=== PATIENT | male | born 2000 | race African-American/Black ===

== ENCOUNTER 2019-06-09 14:44 | Emergency (ER) | payer SELFPAY ==
[~2019-06-09] VITALS: Ht 180 cm; Wt 74.8 kg
--- OUTSIDE RECORDS SUMMARY | 2019-06-09 14:50 | XMS REPORT | Continuity of Care Document ---
Author Organization Unknown Address Unknown Phone Unavailable Allergies There is no data. Medications There is no data. Problems There is no data. Procedures There is no data. Results Test Result Range HSV 1/2 ANTIBODY IgM - 09/15/18 12:25 HSV 1 IGM SCREEN NEGATIVE NRG HSV 2 IGM SCREEN NEGATIVE NRG Encounters ACCT No. Visit Date/Time Discharge Status Pt. Type Provider Facility Loc./Unit Complaint [id number] 07/07/2017 09:39:10 07/07/2017 23:59: 59 CLS Outpatient Santiago Lino [id number] 03/01/2013 10:05:27 03/01/2013 23:59: 59 CLS Outpatient Yoselin Lai [id number] 07/11/2018 18:05:10 Document Registration [id number] 09/15/2018 11:40:00 09/15/2018 23:59: 59 CLS Out[id number] 09/15/2018 11:40:00 Document Registration
--- OUTSIDE RECORDS SUMMARY | 2019-06-09 14:50 | XMS REPORT ---
Author Author Venkata Lino [facility] Address [address] [place], [place] [id number] Care Team Providers Care Leasing Associate Name Role Phone Santiago Lino PCP Santiago Lino PreferredProvider Allergies and Adverse Reactions Name Reaction Notes NO KNOWN DRUG ALLERGIES Plan of Treatment Not available. Medications Name Start Date Expiration Date SIG Comments hydroxyzine HCl 25 mg oral tablet 05/31/2011 06/01/2011 take 1 tablet by oral route QID PRN loratadine 10 mg oral tablet 06/14/2011 09/12/2011 pipo e 1 tablet (10 mg) by oral route once daily for 30 days azithromycin 250 mg oral tablet 12/07/2012 12/12/2012 take 2 tablets (500 mg) by oral route once daily for 1 day then 1 tablet (250 mg) by oral route once daily for 4 days Discontinued Name Start Date Discontinued Date SIG Comments Nasonex 50 mcg/actuation nasal spray,non-aerosol 03/01/2013 07/07/2017 spray 2 sprays in each nostril by intranasal route once daily Cheratussin AC 10-100 mg/5 mL oral liquid 03/01/2013 018 take 5-10 milliliters by oral route every 4 hours as needed for cough Problem List Not available. Vital Signs Date Time BP-Sys(mm[Hg] BP-Hilda(mm[Hg]) HR(bpm) RR(rpm) Temp WT HT HC BMI BSA BMI Percentile O2 Sat(%) 07/07/2017 8:43:00 AM 113 mmHg 72 mmHg 65 bpm 20 rpm 98.2 F 146.437 lbs 70 in 21.0114 kg/m 1.8112 m 26.2 % 98 % 03/01/2013 9:09:00 AM 86 bpm 16 rpm 99.2 F 131.4 lbs 12/07/2012 8:58:00 AM 82 bpm 20 rpm 96 F 128 lbs 05/30/2012 8:46:00 AM 91 bpm 16 rpm 97.9 F 119.4 lbs 99 % 10/27/2011 8:50:00 AM 110 mmHg 66 mmHg 85 bpm 20 rpm 98.2 F 109.2 lbs 100 % 09/15/2011 1:31:00 PM 108 mmHg 72 mmHg 100 bpm 24 rpm 98.5 F 106.5 lbs 63 in 18.8654 kg/m 1.4654 m 49.7 % 05/31/2011 2:41:00 PM 90 bpm 20 rpm 97.7 F 102.6 lbs 99 % 05/19/2011 4:01:00 PM 92 mmHg 68 mmHg 85 bpm 20 rpm 98.5 F 102.4 lbs 62 in 18.729 kg/m 1.4254 m 51 % 100 % 01/04/2011 4:09:00 PM 106 mmHg 70 mmHg 86 bpm 20 rpm 98.9 F 94.6 lbs 60.5 in 18.17 kg/m2 1.35 m2 46 % 99 % Social History Name Description Comments Lives with other family members custodia l maternal aunt and uncle No smoke exposure No pets at home Student (middle school) 7th grade at [employer] () Dad involved in child's care lives in [facility] Mom involved in child's care. lives in [facility] siblings not in the home lots of brother s and sisters that live elsewhere Tobacco Never smoker History of Procedures Date Ordered Description Order Status 09/15/2011 12:00 AM IMMUNIZATION ADMIN EACH ADD Reviewed 09/15/2011 12:00 AM IMMUNIZATION ADMIN Reviewed 09/15/2011 12:00 AM VFC Varivax (Chicken Pox Vac) Reviewed 09/15/2011 12:00 AM VFC Adacel Reviewed 07/07/2017 9:28 AM URINALYSIS AUTO W/O SCOPE Reviewed 05/30/2012 12:00 AM URINALYSIS NONAUTO W/SCOPE Reviewed 12/07/2012 12:00 AM IMMUNIZATION ADMIN Reviewed 12/07/2012 12:00 AM VFC Gardasil (HPV Vaccine) Reviewed 12/07/2012 12:00 AM Flu Mist, VFC Reviewed 12/07/2012 12:00 AM IMMUNE ADMIN ORAL/NASAL Reviewed 03/01/2013 12:00 AM INFLUENZA A/B AG EIA Reviewed Results Summary Date and Description Results 05/30/2012 10:28 AM COLOR YELLOW APPEARANCE CLOVER R SPEC GRAV >=1.030 pH 6.0 PROTEIN NEGATIVE GLUCOSE NEGATIVE KETONE NEGATIVE BILIRUBIN NEGATIVE BLOOD NEGATIVE NITRITE NEGATIVE LEUK SCREEN NEGATIVE WBC/HPF RARE RBC/HPF 0-5 CASTS/LPF NEGATIVE CRYSTALS NEGATIVE MUCOUS THRDS FEW BACTERIA FEW EPITH CELLS FEW SQUAMOUS TRICHOMONAS NEGATIVE YEAST NEGATIVE CULT SET UP? NO 03/01/2013 9:41 AM INFLUENZA A & B NO INFLUENZA A OR B DETECTED 07/07/2017 9:28 AM Clarity Ur clear Urine-Color yellow Glucose Ur-sCnc negative Bilirub Ur Ql negative Ketones Ur Ql Strip negative Sp Gr Ur Qn >=1.030 Hgb Ur Ql Strip negative pH Ur-LsCnc 6.0 Prot Ur Ql Strip 30 Urobilinogen Ur-mCnc 0.2 Nitrite Ur Ql Strip negative WBC # Ur negative History Of Immunizations Name Date Admin Mfg Name Mfg Code Trade Name Lot# Route Inj Vis Given Vis Pub CVX HepB 1998 Not Entered NE Not Entered Not Entered Not E ntered 02/07/2017 02/07/2017 08 HepB 1998 Not Entered NE Not Entered Not Entered Not En tered 02/07/2017 02/07/2017 08 HepB 1998 Not Entered NE Not Entered Not Entered Not En tered 02/07/2017 02/07/2017 08 DTaP 1998 Not Entered NE Not Entered Not Entered Not En tered 02/07/2017 02/07/2017 20 DTaP 1998 Not Entered NE Not Entered Not Entered Not En tered 02/07/2017 02/07/2017 20 DTaP 02/21/2001 Not Entered NE Not Entered Not Entered Not En tered 02/07/2017 02/07/2017 20 DTaP 03/08/2002 Not Entered NE Not Entered Not Entered Not En tered 02/07/2017 02/07/2017 20 HepA 01/10/2006 Not Entered NE Not Entered Not Entered Not En tered 02/07/2017 02/07/2017 83 HepA 09/26/2009 Not Entered NE Not Entered Not Entered Not En tered 02/07/2017 02/07/2017 83 Meningococcal 09/26/2009 Not Entered NE Not Entered Not Ente red Not Entered 02/07/2017 02/07/2017 136 MMR 02/21/2001 Not Entered NE Not Entered Not Entered Not En tered 02/07/2017 02/07/2017 03 MMR 03/08/2002 Not Entered NE Not Entered Not Entered Not En tered 02/07/2017 02/07/2017 03 IPV 1998 Not Entered NE Not Entered Not Entered Not En tered 1998 02/07/2017 999 IPV 1998 Not Entered NE Not Entered Not Entered Not En tered 02/07/2017 02/07/2017 110 IPV 02/21/2001 Not Entered NE Not Entered Not Entered Not En tered 02/07/2017 02/07/2017 110 IPV 03/08/2002 Not Entered NE Not Entered Not Entered Not En tered 02/07/2017 02/07/2017 110 Varicella 01/07/2003 Not Entered NE Not Entered Not Entered Not Entered 02/07/2017 02/07/2017 21 Hib 1998 Not Entered NE Not Entered Not Entered Not En tered 02/07/2017 02/07/2017 999 Hib 1998 Not Entered NE Not Entered Not Entered Not En tered 02/07/2017 02/07/2017 999 Hib 02/21/2001 Not Entered NE Not Entered Not Entered Not En tered 02/07/2017 02/07/2017 999 Rotavirus 1998 Not Entered NE Not Entered Not Entered Not Entered 02/07/2017 02/07/2017 116 Rotavirus 1998 Not Entered NE Not Entered Not Entered Not Entered 02/07/2017 02/07/2017 116 Varicella 09/15/2011 [employer] MSD VARIVAX [id number] Subcutaneou s Right Vastus Lateralis 09/15/2011 04/20/2007 21 Tdap 09/15/2011 [employer] BOOSTRIX [id number] Intramuscul ar Right Deltoid 09/15/2011 06/23/2006 115 HPV 12/07/2012 [employer] MSD GARDASIL [id number] Intramuscu lar Left Deltoid 12/07/2012 06/23/2012 62 Influenza 1998 Not Entered NE Not Entered Not Entered Not Entered 02/07/2017 02/07/2017 999 Influenza 1998 Not Entered NE Not Entered Not Entered Not Entered 02/07/2017 02/07/2017 999 Influenza 12/07/2012 Not Entered NE FLUMIST [id number] Intramuscular N ot Entered 12/07/2012 09/01/2012 999 History of Past Illness Name Date of Onset Comments Head Injury, Closed December 2010 Well Child Examination Jan 04 2011 4:06PM Well Child Examination May 19 2011 4:07PM Poison Brynn May 31 2011 2:42PM Sports Physical Sep 15 2011 1:37PM Back Pain Oct 27 2011 8:52AM Dysuria May 30 2012 8:49AM Nasal congestion Dec 07 2012 9:01AM Flu Dec 07 2012 9:01AM Gardsil (HPV) Dec 07 2012 9:01AM Upper Respiratory Infection Dec 07 2012 9:01AM Nasal congestion Mar 01 2013 9:11AM Upper Respiratory Infection Mar 01 2013 9:11AM Sports Physical Jul 07 2017 8:45AM Payers Insurance Name Company Name Plan Name Plan Number Policy Number Sergio cy Group Number Start Date zzzTest Medicare A Test Medicare A [id number] Wednesday, [email or web address] [id number] N[facility]A [facility] - Community [facility] [id number] N/A History of Encounters Visit Date Visit Type Provider 07/07/2017 Office visit Santiago Lino DO 03/01/2013 Office visit Yoselin Lai MD 12/07/2012 Office visit Yoselin Lai MD 05/30/2012 Office visit Yoselin Lai MD 10/27/2011 Office visit Yoselin Lai MD 09/15/2011 Office visit Yoselin Lai MD 05/31/2011 Office visit Yoselin Lai MD 05/19/2011 Office visit Yoselin Lai MD 01/04/2011 Office visit Yoselin Lai MD
--- NOTE | 2019-06-09 14:51 | NUR ---
ATTEMPT TO CALL PT BACK ET PT NOT IN ROOM.
[2019-06-09 15:05] LABS: BASOPHILS % (AUTO) 0 % (0-10); EOSINOPHILS % (AUTO) 0 % (0-10); HEMATOCRIT 40 % (40-54); HEMOGLOBIN 15.2 G/DL (13.3-17.7); LYMPHOCYTES # (AUTO) 1.4 X 10^3 (1.0-4.0); LYMPHOCYTES % (AUTO) 18 % (12-44); MEAN CORPUSCULAR HEMOGLOBIN 32 PG (25-34); MEAN CORPUSCULAR HGB CONC 38 G/DL (32-36); MEAN CORPUSCULAR VOLUME 85 FL (80-99); MEAN PLATELET VOLUME 11.3 FL (7.4-10.4); MONOCYTES # (AUTO) 0.6 X 10^3 (0.0-1.0); MONOCYTES % (AUTO) 8 % (0-12); NEUTROPHILS # (AUTO) 5.8 X 10^3 (1.8-7.8); NEUTROPHILS % (AUTO) 74 % (42-75); PLATELET COUNT 200 10^3/uL (130-400); RED CELL DISTRIBUTION WIDTH 12.6 % (10.0-14.5); WHITE BLOOD COUNT 7.8 10^3/uL (4.3-11.0)
--- NOTE | 2019-06-09 15:09 | ED GU-Male ---
General Chief Complaint: General Problems/Pain Stated Complaint: GENITAL PROBLEMS Source: patient Exam Limitations: no limitations History of Present Illness Date Seen by Provider: June 09, 2019 Time Seen by Provider: 15:06 Initial Comments To ER with complaints about the appearance firmness of his penis. This began at 2 PM. He was in the shower, had a partial erection which then went away. The penis has shrunken in size to a nearly flaccid size but the body of the penis is firm, the glans is soft. No history of this ever happening before, smokes marijuana but denies any other drug use. Timing/Duration: just prior to arrival, getting worse Severity/Quality: moderate Location: unknown Radiation: none Activities at Onset: none Prior Genitourinary Problems: none Allergies and Home Medications Allergies Coded Allergies: No Known Drug Allergies (Unverified , 12/12/10) Patient Home Medication List Home Medication List Reviewed: Yes Review of Systems Review of Systems Constitutional: see HPI EENTM: see HPI Respiratory: no symptoms reported Cardiovascular: no symptoms reported Genitourinary: see HPI Musculoskeletal: no symptoms reported Skin: no symptoms reported Psychiatric/Neurological: No Symptoms Reported Endocrine: No Symptoms Reported Past Moiakgt-Ybocds-Vpwlum Hx Patient Social History Recent Foreign Travel: No Contact w/Someone Who Travel: No Physical Exam Vital Signs Vital Signs - First Documented 06/09/19 14:51 Temp 37.0 Pulse 116 Resp 16 B/P (MAP) 148/99 (115) Pulse Ox 97 O2 Delivery Room Air Capillary Refill : Height, Weight, BMI Height: '" Weight: lbs. oz. kg; BMI Method: General Appearance: WD/WN, no apparent distress HEENT: PERRL/EOMI, normal ENT inspection Respiratory: no respiratory distress, no accessory muscle use Gastrointestinal: normal bowel sounds, non tender Male: other (penis is in a semirigid state. The glans is soft, body of the penis is firm.) Extremities: normal range of motion, non-tender Neurologic/Psychiatric: alert, normal mood/affect, oriented x 3 Skin: normal color, warm/dry Progress/Results/Core Measures Suspected Sepsis SIRS Temperature: Pulse: Respiratory Rate: Laboratory Tests 06/09/19 14:55: White Blood Count 7.8 Blood Pressure / Mean: Laboratory Tests 06/09/19 14:55: Creatinine 1.17, Platelet Count 200 Results/Orders Lab Results Laboratory Tests Test 06/09/19 14:55 06/09/19 15:43 Range/Units White Blood Count 7.8 4.3-11.0 10^3/uL Red Blood Count 4.70 4.35-5.85 10^6/uL Hemoglobin 15.2 13.3-17.7 G/DL Hematocrit 40 40-54 % Mean Corpuscular Volume 85 80-99 FL Mean Corpuscular Hemoglobin 32 25-34 PG Mean Corpuscular Hemoglobin Concent 38 H 32-36 G/DL Red Cell Distribution Width 12.6 10.0-14.5 % Platelet Count 200 130-400 10^3/uL Mean Platelet Volume 11.3 H 7.4-10.4 FL Neutrophils (%) (Auto) 74 42-75 % Lymphocytes (%) (Auto) 18 12-44 % Monocytes (%) (Auto) 8 0-12 % Eosinophils (%) (Auto) 0 0-10 % Basophils (%) (Auto) 0 0-10 % Neutrophils # (Auto) 5.8 1.8-7.8 X 10^3 Lymphocytes # (Auto) 1.4 1.0-4.0 X 10^3 Monocytes # (Auto) 0.6 0.0-1.0 X 10^3 Eosinophils # (Auto) 0.0 0.0-0.3 10^3/uL Basophils # (Auto) 0.0 0.0-0.1 10^3/uL Sodium Level 138 135-145 MMOL/L Potassium Level 3.5 L 3.6-5.0 MMOL/L Chloride Level 103 98-107 MMOL/L Carbon Dioxide Level 22 21-32 MMOL/L Anion Gap 13 5-14 MMOL/L Blood Urea Nitrogen 10 7-18 MG/DL Creatinine 1.17 0.60-1.30 MG/DL Estimat Glomerular Filtration Rate > 60 BUN/Creatinine Ratio 9 Glucose Level 107 H 70-105 MG/DL Calcium Level 10.1 8.5-10.1 MG/DL Urine Opiates Screen NEGATIVE NEGATIVE Urine Oxycodone Screen NEGATIVE NEGATIVE Urine Methadone Screen NEGATIVE NEGATIVE Urine Propoxyphene Screen NEGATIVE NEGATIVE Urine Barbiturates Screen NEGATIVE NEGATIVE Ur Tricyclic Antidepressants Screen NEGATIVE NEGATIVE Urine Phencyclidine Screen NEGATIVE NEGATIVE Urine Amphetamines Screen NEGATIVE NEGATIVE Urine Methamphetamines Screen NEGATIVE NEGATIVE Urine Benzodiazepines Screen NEGATIVE NEGATIVE Urine Cocaine Screen NEGATIVE NEGATIVE Urine Cannabinoids Screen NEGATIVE NEGATIVE My Orders Orders - JANE SALINAS HR MANAGER Cbc With Automated Diff (06/09/19 14:55) Basic Metabolic Panel (06/09/19 14:55) Ns Iv 1000 Ml (Sodium Chloride 0.9%) (06/09/19 15:15) Ed Iv/Invasive Line Start (06/09/19 15:09) Lorazepam Injection (Ativan Injection) (06/09/19 15:15) Sickle Cell Screen (06/09/19 15:10) Drug Screen Stat (Urine) (06/09/19 15:30) Arterial Blood Gas (06/09/19 16:11) Medications Given in ED Current Medications Medications Dose Ordered Sig/Eric Route Start Time Stop Time Status Last Admin Dose Admin Lorazepam 0.5 mg ONCE PRN IVP 06/09/19 15:15 06/09/19 15:19 0.5 MG Vital Signs/I&O 06/09/19 14:51 Temp 37.0 Pulse 116 Resp 16 B/P (MAP) 148/99 (115) Pulse Ox 97 O2 Delivery Room Air Capillary Refill : Departure Communication (Admissions) Spoke with Dr. Diaz who recommends reassessing the penis. If the glans is the same firmness of the body of the penis then this is of no concern. If the glans of the penis is soft and the body is firm this would be concerning for priapism. If this is a priapism, he would need to be transferred to [facility] for possible shunt. He states he does not do these here. He would recommend a dose of anxiolytic and to check for sickle cell trait. The penis is semierect, not fully rigid. This would have features of a nonischemic or high flow priapism. Lab called to report that there are no sickle-appearing cells on manual diffe [facility] [id number] a dorsal penile nerve block using 2 mL of 1% lidocaine without epinephrine. This was in preparation for a penile blood gas. About 5 minutes after the dorsal penile nerve block the penis is now completely flaccid, he denies it being any more firm than usual in its flaccid state and feels like it is back to normal. As such I will not do the dorsal penile nerve block. Advised him to try to not get an erection for the next 24 hours, follow-up with primary care for workup of this outpatient. Return to ER for any worsening. Impression Primary Impression: Priapism, unspecified Disposition: 01 HOME, SELF-CARE Condition: Stable Departure-Patient Inst. Decision time for Depature: 16:26 Referrals: VELMA BURKETT MD,SHAWNA IVY MD, HOLLY R MD KOEHN, DANIEL J MD NO,LOCAL PHYSICIAN (PCP) Primary Care Physician JEFF GABRIEL MD Patient Instructions: Priapism Add. Discharge Instructions: 1. Return to ER for any concerns such as if you develop an erection or a semirigid penis that does not resolve back to normal within 4 hours.. Follow-up with one of the physicians listed for further outpatient workup. All discharge instructions reviewed with patient and/or family. Voiced understanding. Scripts No Active Prescriptions or Reported Meds JANE SALINAS APRN June 09, 2019 15:09
[2019-06-09] MEDS ORDERED: NS IV 1000 ML 1,000 ML IV SCH (15:15)
[2019-06-09] MEDS ORDERED: LORazepam INJ 2 MG/ML (ATIVAN) VIAL IVP PRN (15:15)
[2019-06-09 15:20] LABS: CHLORIDE 103 MMOL/L (98-107); POTASSIUM 3.5 MMOL/L (3.6-5.0); SODIUM 138 MMOL/L (135-145)
[2019-06-09 15:21] LABS: CALCIUM 10.1 MG/DL (8.5-10.1)
[2019-06-09 15:22] LABS: GLUCOSE 107 MG/DL (70-105)
[2019-06-09 15:23] LABS: CARBON DIOXIDE 22 MMOL/L (21-32)
[2019-06-09 15:26] LABS: CREATININE SERUM 1.17 MG/DL (0.60-1.30); GFR ESTIMATED > 60
[2019-06-09 15:27] LABS: BUN/CREATININE RATIO 9
--- NOTE | 2019-06-09 15:52 | NUR ---
JANE IN TALKING TO THE PT AT THIS TIME.
[2019-06-09 16:02] LABS: AMPHETAMINE SCREEN, URINE NEGATIVE (NEGATIVE); BENZODIAZEPINES SCREEN URINE NEGATIVE (NEGATIVE); CANNABINOID SCREEN, URINE NEGATIVE (NEGATIVE); COCAINE SCREEN URINE NEGATIVE (NEGATIVE); METHAMPHETAMINE SCREEN URINE S NEGATIVE (NEGATIVE)
[2019-06-09 16:03] LABS: BARBITURATE SCREEN URINE NEGATIVE (NEGATIVE); METHADONE STAT NEGATIVE (NEGATIVE); OPIATE SCREEN URINE NEGATIVE (NEGATIVE); OXYCODONE STAT NEGATIVE (NEGATIVE); PROPOXYPHENE STAT NEGATIVE (NEGATIVE); TRICYCLIC ANTIDEPRESSANTS SCRE NEGATIVE (NEGATIVE)
[2019-06-09 16:32] VITALS: BP 146/99
== END 2019-06-09 16:29 | disposition home or self-care (01) ==
LOC: EDUNIT# 14:44 → ER 14:46
DX: N48.30 Priapism, unspecified (principal)
CPT/HCPCS: 36415; 80048; 80306; 85025

== ENCOUNTER 2019-06-12 07:05 | Emergency (ER) | payer SELFPAY ==
--- OUTSIDE RECORDS SUMMARY | 2019-06-12 07:10 | XMS REPORT | Continuity of Care Document ---
Author Organization Unknown Address Unknown Phone Unavailable Allergies Active Description Code Type Severity Reaction Onset Reported/Identified Relationship to Patient Clinical Status Yes No Known Drug Allergies [id number] Drug Allergy Unknown N/A 12/12/2010 Medications There is no data. Problems Date Dx Coded Attending Type Code Diagnosis Diagnosed By 06/12/2019 JANE SALINAS APRN Ot N48.30 PRIAPISM, UNSPECIFIED Procedures There is no data. Results Test Result Range HSV 1/2 ANTIBODY IgM - 09/15/18 12:25 HSV 1 IGM SCREEN NEGATIVE NRG HSV 2 IGM SCREEN NEGATIVE NRG Complete blood count (CBC) with automate d white blood cell (WBC) differential - 06/09/19 14:55 Blood leukocytes automated count (number/volume) 7.8 10*3/uL 4.3-11.0 Blood erythrocytes automated count (number/volume) 4.70 10*6/uL 4.35-5.85 Venous blood hemoglobin measurement (mass/volume) 15.2 g/dL 13.3-17.7 Blood hematocrit (volume fraction) 40 % 40-54 Automated erythrocyte mean corpuscular volume 85 [ foz_us] 80-99 Automated erythrocyte mean corpuscular h emoglobin (mass per erythrocyte) 32 pg 25-34 Automated erythrocyte mean corpuscular h emoglobin concentration measurement (mass/volume) 38 g/dL 32-36 Automated erythrocyte distribution width ratio 12. 6 % 10.0- 14.5 Automated blood platelet count (count/volume) 200 10*3/uL 130-400 Automated blood platelet mean volume measurement 11.3 [foz_us] 7.4-10.4 Automated blood neutrophils/100 leukocytes 74 % 42-75 Automated blood lymphocytes/100 leukocytes 18 % 12-44 Blood monocytes/100 leukocytes 8 % 0-12 Automated blood eosinophils/100 leukocytes 0 % 0-10 Automated blood basophils/100 leukocytes 0 % 0-10 Blood neutrophils automated count (number/volume) 5.8 10*3 1.8-7.8 Blood lymphocytes automated count (number/volume) 1.4 10*3 1.0-4.0 Blood monocytes automated count (number/volume) 0. 6 10*3 0.0-1.0 Automated eosinophil count 0.0 10*3/uL 0 .0-0.3 Automated blood basophil count (count/volume) 0.0 10*3/uL 0.0-0.1 Whole blood basic metabolic panel - 03/29 14:55 Serum or plasma sodium measurement (moles/volume) 138 mmol/L 135-145 Serum or plasma potassium measurement (moles/volume) 3.5 mmol/L 3.6-5.0 Serum or plasma chloride measurement (moles/volume) 103 mmol/L 98-107 Carbon dioxide 22 mmol/L 21-32 Serum or plasma anion gap determination (moles/volume) 13 mmol/L 5-14 Serum or plasma urea nitrogen measurement (mass/volume ) 10 mg/dL 7-18 Serum or plasma creatinine measurement (mass/volume) 1.17 mg/dL 0.60-1.30 Serum or plasma urea nitrogen/creatinine mass ratio 9 NRG Serum or plasma creatinine measurement w ith calculation of estimated glomerular filtration rate > NRG Serum or plasma glucose measurement (mass/volume) 107 mg/dL 70-105 Serum or plasma calcium measurement (mass/volume) 10.1 mg/dL 8.5-10.1 Urine drug screening test - 06/09/19 15: 43 Urine phencyclidine detection by screening method NEGATIVE NEGATIVE Urine benzodiazepines detection by screening method NEGATIVE NEGATIVE Urine cocaine detection NEGATIVE NEGATI VE Urine amphetamines detection by screening method N EGATIVE NEGATIVE Urine methamphetamine detection by screening method NEGATIVE NEGATIVE Urine cannabinoids detection by screening method N EGATIVE NEGATIVE Urine opiates detection by screening method NEGATI VE NEGATIVE Urine barbiturates detection NEGATIVE N EGATIVE Screening urine tricyclic antidepressants detection NEGATIVE NEGATIVE Urine methadone detection by screening method NEGA TIVE NEGATIVE Urine oxycodone detection NEGATIVE NEGA TIVE Urine propoxyphene detection NEGATIVE N EGATIVE Encounters ACCT No. Visit Date/Time Discharge Status Pt. Type Provider Facility Loc./Unit Complaint [id number] 07/07/2017 09:39:10 07/07/2017 23:59: 59 CLS Outpatient Santiago Lino [id number] 03/01/2013 10:05:27 03/01/2013 23:59: 59 CLS Outpatient Yoselin Lai [id number] 07/11/2018 18:05:10 Document Registration [id number] 06/09/2019 14:46:00 020 16:29:00 DIS Outpatient JANE SALINAS APRN [facility] ER GENITAL PROBLEMS [id number] 09/15/2018 11:40:00 09/15/2018 23:59: 59 CLS Outpatient DIMITRI COPE LAC [facility] [id number] 09/15/2018 11:40:00 Document Registration
--- NOTE | 2019-06-12 07:25 | NUR ---
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 THIS RN WALKED OUTSIDE TO GET HIM AND THE CAR BACKED OUT AND DROVE AWAY.
== END 2019-06-12 07:25 | disposition left against medical advice (07) ==
LOC: EDUNIT# 07:05 → ER 07:06
DX: R00.2 Palpitations (principal); R11.10 Vomiting, unspecified

== ENCOUNTER 2019-11-08 17:01 | Emergency (ER) | payer SELFPAY ==
[~2019-11-08] VITALS: Ht 180.3 cm; Wt 72.5 kg
[2019-11-08 17:14] VITALS: BP 145/103
[2019-11-08 17:46] LABS: BILIRUBIN,URINE NEGATIVE (NEGATIVE); CLARITY,URINE CLEAR; COLOR,URINE YELLOW; GLUCOSE, URINE (UA) NEGATIVE (NEGATIVE); KETONES,URINE NEGATIVE (NEGATIVE); LEUKOCYTE ESTERASE ,URINE NEGATIVE (NEGATIVE); NITRITE,URINE NEGATIVE (NEGATIVE); PH,URINE 7.5 (5-9); PROTEIN,URINE NEGATIVE (NEGATIVE)
--- NOTE | 2019-11-08 17:49 | ED Abdominal Pain ---
General Chief Complaint: Abdominal/GI Problems Stated Complaint: ABD PAIN Nursing Triage Note: Pt c/o abdominal pain and nausea for two weeks. Pt reports having a bowel movement immediately after eating. Pt reports increase in bread and oats in diet at same time symptoms began. Sepsis Screen: No Definite Risk Source of Information: Patient Exam Limitations: No Limitations History of Present Illness Date Seen by Provider: Nov 08, 2019 Time Seen by Provider: 17:07 Initial Comments Patient presents with 2 weeks of abdominal discomfort around the umbilicus without fever or chills. He has no nausea or vomiting. He has relief after bowel movements and usually has bowel movements shortly after eating. They tend to be small amounts of loose stool. No blood in the stool. No history of abdominal brenna geries or medical history. Allergies and Home Medications Allergies Coded Allergies: No Known Drug Allergies (Unverified , 12/12/10) Patient Home Medication List Home Medication List Reviewed: Yes Review of Systems Review of Systems Constitutional: No chills, No diaphoresis EENTM: No Blurred Vision, No Double Vision Respiratory: Denies Cough, Denies Shortness of Air Cardiovascular: Denies Chest Pain, Denies Edema All Other Systems Reviewed Negative Unless Noted: Yes Past [id number] Hx Patient Social History Alcohol Use: Denies Use Recreational Drug Use: No Drug of Choice: POT Smoking Status: Current Someday Smoker Type Used: Cigarettes 2nd Hand Smoke Exposure: Yes Recent Foreign Travel: No Contact w/Someone Who Travel: No Recent Infectious Disease Expo: No Recent Hopitalizations: No Seasonal Allergies Seasonal Allergies: No Past Medical History Surgeries: No Respiratory: No Cardiac: No Neurological: No Genitourinary: No Gastrointestinal: No Musculoskeletal: No Endocrine: No HEENT: No Cancer: No Psychosocial: No Integumentary: No Physical Exam Vital Signs Vital Signs - First Documented 11/08/19 17:14 Temp 37.2 Pulse 88 Resp 20 B/P (MAP) 145/103 (117) Pulse Ox 97 O2 Delivery Room Air Capillary Refill : Less Than 3 Seconds Height/Weight/BMI Height: '" Weight: lbs. oz. kg; 22.00 BMI Method: General Appearance: WD/WN, no apparent distress HEENT: normal ENT inspection, pharynx normal Neck: full range of motion, normal inspection Respiratory: chest non-tender, no respiratory distress, no accessory muscle use Cardiovascular: normal peripheral pulses, regular rate, rhythm Peripheral Pulses: 2+ Radial Pulses (R), 2+ Radial Pulses (L) Gastrointestinal: normal bowel sounds, non tender, soft Extremities: normal inspection, no pedal edema, normal capillary refill Neurologic/Psychiatric: alert, normal mood/affect, oriented x 3 Skin: normal color, warm/dry Progress/Results/Core Measures Results/Orders Lab Results Laboratory Tests Test 11/08/19 17:25 Range/Units My Orders Orders - MICKI SCHULTZ Ua Culture If Indicated (11/08/19 17:06) Vital Signs/I&O 11/08/19 17:14 Temp 37.2 Pulse 88 Resp 20 B/P (MAP) 145/103 (117) Pulse Ox 97 O2 Delivery Room Air Blood Pressure Mean: 117 Progress Progress Note : Time: 17:57 Progress Note I discussed the case with the patient and that he has a nonsurgical abdomen aseptic vital signs and we suspect constipation/obstipation would be the top diagnosis. We did offer to do some blood work but the patient declined stating he would like to go home and try the MiraLAX and enemas and we gave good return precautions Departure Impression Primary Impression: Obstipation Disposition: 01 HOME, SELF-CARE Condition: Stable Departure-Patient Inst. Decision time for Depature: 17:59 Referrals: NO,LOCAL PHYSICIAN (PCP/Family) Primary Care Physician Patient Instructions: Constipation, Adult (DC) Add. Discharge Instructions: extermination supervisor a bottle of MiraLAX and take one capful in 6-8 ounces of fluid of your choice 3 or more times a day for the next 3-4 days. extermination supervisor an enema such as fleets and do it once a day until you have completely emptied out your bowels. Return to the ER or your doctor if you discover fever, intractable vomiting, intractable pain. Tylenol 1000 mg every 8 hours as necessary for pain. Ibuprofen 800 mg every 8 hours as necessary for pain. Simethicone/Gas-X as necessary for gas pain. Ondansetron one tablet under the tongue every 6 hours as necessary for nausea or vomiting. All discharge instructions reviewed with patient and/or family. Voiced understanding. Scripts Ondansetron (Ondansetron Odt) 4 Mg Tab.rapdis 4 MG PO Q6H PRN for NAUSEA/VOMITING, #8 TAB 0 Refills Prov: MICKI SCHULTZ 11/08/19 Work/School Note: Work Release Form Date Seen in the Emergency Department: Nov 08, 2019 Return to Work: Nov 10, 2019 Restrictions: No Restrictions MICKI SCHULTZ Nov 08, 2019 17:49
[2019-11-08 17:54] LABS: AMORPHOUS SEDIMENT,UR FEW AMOR PHOSPHATE /LPF; BACTERIA,URINE TRACE /HPF; SQUAMOUS EPITHELIAL CELL,UR RARE /HPF; WBC,URINE RARE /HPF
[2019-11-08] MEDS ORDERED: ONDA4TAB11 PO (18:01)
== END 2019-11-08 18:00 | disposition home or self-care (01) ==
LOC: EDUNIT# 17:01 → ER 17:03
DX: K59.00 Constipation, unspecified (principal); F17.210 Nicotine dependence, cigarettes, uncomplicated
CPT/HCPCS: 81000; 99282